=== PATIENT | female | born 1965 | race Caucasian/White ===

== ENCOUNTER 2016-11-19 06:43 | Day surgery (SDC) | payer BC, OTHER ==
[2016-11-19] MEDS ORDERED: Lactated Ringers 1,000 ML IV SCH (07:00)
[2016-11-19] MEDS ORDERED: Sodium Chloride 0.9% 10 ML Syringe FLUSH PRN (07:00)
[2016-11-19] MEDS ORDERED: Midazolam 1 MG/ML 2 ML SDV IV ONE (08:00)
[2016-11-19] MEDS ORDERED: Lidocaine 2% 100 MG/5 ML Syringe IVPUSH ONE (08:00)
[2016-11-19] MEDS ORDERED: Propofol 200 MG/20 ML SDV IV ONE (08:00)
--- NOTE | 2016-11-19 08:19 | PCM.OPNOTE ---
- General Post-Op/Procedure Note Date of Surgery/Procedure: 11/19/16 Operative Procedure(s): egd with bx Findings: gastritis hiatal hernia esophagitis Pre Op Diagnosis: bloating. gerd. abd pain Post-Op Diagnosis: gastritis. hiatal hernia. esophagitis Anesthesia Technique: [facility] [place] Primary Surgeon: Torres Fischer Anesthesia Provider: Jesica Quintanilla Pathology: duodenum stomach and distal esoph Complications: None Condition: Good Free Text/Narrative:: see dictation
--- NOTE | 2016-11-19 08:39 | OR ---
DATE OF OPERATION: 11/19/2016 SURGEON: Torres Fischer MD PROCEDURE PERFORMED: Esophagogastroduodenoscopy with cold forceps biopsy. PREOPERATIVE DIAGNOSES: Symptomatic gastroesophageal reflux disease and abdominal bloating. POSTOPERATIVE DIAGNOSES: Gastritis, hiatal hernia, and esophagitis. INDICATIONS FOR PROCEDURE: This is a 51-year-old white female, who presents with complaints of worsening GERD symptoms as well as abdominal bloating. She was offered and accepted an EGD. DESCRIPTION OF OPERATION: After an excellent IV sedation was administered, the bite block was inserted. The flexible endoscope was passed without difficulty down the patient's esophagus into the stomach. The stomach was insufflated and the scope was passed through the pylorus to the second portion of duodenum and slowly withdrawn. The following findings were noted. Duodenum was unremarkable. Because of her complaints of bloating, biopsies were taken to rule out celiac disease. Stomach, mild gastritis and a hiatal hernia noted, biopsies were taken. Esophagus of the GE junction measured at 40 cm with mild erythema proximal to this area and biopsies were taken. The remainder of the esophageal exam was essentially unremarkable. The stomach was deflated and scope was removed. The patient tolerated the procedure well and was taken to recovery in good condition. /[id number] /MODL
[2016-11-19 09:56] VITALS: BP 118/85
== END 2016-11-19 09:35 | disposition home or self-care (01) ==
LOC: FB.SDS 06:43
PROVIDERS: ATTEND Surgery
PROC: 0DB98ZX Excision of Duodenum, Via Natural or Artificial Opening Endoscopic, Diagnostic (ICD-10-PCS; principal; 2016-11-19)
PROC: 0DB58ZX Excision of Esophagus, Via Natural or Artificial Opening Endoscopic, Diagnostic (ICD-10-PCS; 2016-11-19)
DX: K29.50 Unspecified chronic gastritis without bleeding (principal); K22.70 Barrett's esophagus without dysplasia; K44.9 Diaphragmatic hernia without obstruction or gangrene; B18.2 Chronic viral hepatitis C
CPT/HCPCS: 43239; 88305; 88313; 88342; J2250; J2704; J7120